=== PATIENT | male | born 1970 | race Caucasian/White ===

== ENCOUNTER 2021-10-20 18:27 | Emergency (ER) | payer MEDICAID ==
[~2021-10-20] VITALS: Ht 180.3 cm; Wt 79.4 kg
[~2021-10-20 18:27] MED LIST: ERYTHROMYCIN O3.5 GM OU
[2021-10-20 20:43] LABS: HEMOGLOBIN 14.2 gm/dl (14.0-17.5); RED BLOOD COUNT 4.9 M/UL (4.20-5.50); WHITE BLOOD COUNT 13.3 K/UL (4.5-11.0)
[2021-10-20 21:03] LABS: BUN/CREATININE RATIO 10 (0-10)
[2021-10-20] MEDS ORDERED: CLEOCIN HCL300 MG PO (22:54)
== END 2021-10-20 23:11 | disposition home or self-care (01) ==
LOC: ER1 18:27
PROVIDERS: Physician Assistant
DX: K02.9 Dental caries, unspecified (principal)
CPT/HCPCS: 70487; 80053; 83605; 85025; 85610; 96365; 99284; Q9967